=== PATIENT | male | born 2000 | race Caucasian/White ===

== ENCOUNTER 2022-02-20 22:09 | Emergency (ER) | payer OTHER, SELFPAY ==
[2022-02-20] MEDS ORDERED: Ketorolac Tromethamine 30 MG/ML VIAL ONE (22:48)
== END 2022-02-21 00:23 | disposition home or self-care (01) ==
LOC: CSHERS 22:09
DX: S62.306A Unspecified fracture of fifth metacarpal bone, right hand, initial encounter for closed fracture (principal); W22.09XA Striking against other stationary object, initial encounter
CPT/HCPCS: 96372; J1885